=== PATIENT | female | born 1995 | race Caucasian/White ===

== ENCOUNTER 2021-07-26 09:45 | Outpatient (RCR) | payer OTHER, SELFPAY ==
[2021-07-07 11:57] VITALS: BMI 37.7
--- NOTE | 2021-07-07 12:36 | PC.NURSE ---
Case opened in treatment team
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
--- NOTE | 2021-07-11 08:36 | PC.NURSE ---
Pt called stating she wont be in tomorrow, Sunday07/12/21, as she has an appt with her PCP. Pt has displayed cold symptoms over the past several days.
--- NOTE | 2021-07-11 15:41 | PC.NURSE ---
I called and LM for pt to discuss schedule and aftercare, etc.
--- NOTE | 2021-07-12 12:35 | PC.NURSE ---
Case opened in treatment team
--- NOTE | 2021-07-12 15:39 | PC.NURSE ---
I called and spoke to pt. She said the program is going very well for her, and she is benefitting from the structure, education, and coping skills. She reports distress after a difficult discussion with her boss in which she told her boss she is in need of a leave from work and school. She also spoke about coming to accept a potential new diagnosis of bipolar disorder and new medication. Pt reproted a sense that she is coping well, and said she does not feel unsafe. Discussed aftercare plans. Pt would rather I put in a referral to [facility] than [facility]/ [facility]. I agreed to do this.
--- NOTE | 2021-07-13 11:31 | PC.NURSE ---
At patient's request, I called and placed a referral for pt to attend [facility] for individual therapy and med management. I spoke to Tejal. Tejal said she will get back to me with an intake appt today or tomorrow.
--- NOTE | 2021-07-13 11:52 | P.PNPSP_ITS ---
Subjective Subjective Date of Service: 07/13/21 Reason For Visit: Depression, Anxiety Interim History: The patient has reported mood swings, risperidone at 0.5 mg has not helped her. She still has nightmares. We discussed risks, benefits, side- effects and alternatives and she agreed to increase Risperdal up to 1 mg p.o. b.i.d. to target mood lability and add prazosin 2 mg p.o. q.h.s. for nightmares. Review of Systems Acute medical concerns: No Medical Review of Systems: unchanged Mental Status Exam Mental Status Exam Patient Appearance: Well Grooomed Patient Orientation: Person, Place, Time and Situation Level of Consciousness: Awake Patient Behavior: Appropriate Mood Description: Calm Affect Description: Labile Patient Cognition Impaired: No Ability to Follow Directions: Good Speech Pattern: Clear Memory Description: Intact Hallucinations: None Delusions: Not Present Thought Process: Goal Oriented Thought Content: positive for Flight of Ideas, positive for Racing and positive for Preoccupation Judgement: Fair Diagnostics Vital Signs (24Hr): Body Mass Index 37.7 Assessment & Plan Assessment & Plan (1) Bipolar 2 disorder: Status: Acute Code(s): F31.81 - Bipolar II disorder (2) Panic disorder [episodic paroxysmal anxiety]: Status: Acute Code(s): F41.0 - Panic disorder [episodic paroxysmal anxiety] Assessment and Plan: Young adult female with a history of mood lability, episodes of depression and racing thoughts with a past history of PTSD and panic attacks. She was recently started on risperidone but so far no changes in her mood lability. Plan 1. She agreed to increase risperidone up to 1 mg p.o. b.i.d. to target mood lability. 2. Start prazosin up to 2 mg p.o. q.h.s. to target insomnia Reason for contiued partial hosp. stay Substantial Risk for: inability to function and med/psych decompensation Certification I certify that partial hospital treatment is medically necessary due to the symptoms and problems resulting from the patient's mental illness and the failure to treat the patient at the partial hospital level of care would likely result in the patient requiring inpatient psychiatric care which could not be prevented at a less intensive level of care. Greater than 50% of the session was spent on counseling and/or coordination of care Discharge Plan Discharge Attending provider: Mehul Meek Medications: New risperidone [Risperdal] 1 mg tablet 1 mg PO BID Qty: 14 RF: 0 prazosin 2 mg capsule 2 mg PO BEDTIME Qty: 7 RF: 0
--- NOTE | 2021-07-19 13:44 | PC.NURSE ---
I called and spoke to staff at [facility], as I have not heard back about an appt for pt. The woman I spoke with said that the client had been diagnosed by Nia already and that someone would reach out to her about a therapy time. She was not able to give me an appointment.
--- NOTE | 2021-07-19 13:52 | PC.NURSE ---
I spoke with pt, and she informed me that she never spoke to Nia at [facility] (see previous note), and that she has not heard back from [facility] about an intake. I then called [facility] and spoke to staff who said she is unable to give me an appt at this time. She transferred me to Kristal, who suggested I write an email to central intake at [facility] ([email or web address]) with patients full name, date of , and discharge date. I sent this email. Kristal said someone will get back to me with appt times.
--- NOTE | 2021-07-19 14:06 | HO.PHPPROGNO ---
Subjective Subjective Date of Service: 07/19/21 Reason For Visit: Depression, Anxiety Subjective Notes: Corbett Warning and Conditional Voluntary Healthcare Proxy: No Guardianship: No Medical Problems Affecting Mental Status: No Interim History: Flory is a 25 y.o. Female who self-referred to [facility] due to worsening depression and anxiety. She does not have OP psych treatment. Symptoms include anxiety, passive SI without plan/ intent, depression, and panic attacks x one month. On intake, she endorsed sx of hypomania and mood swings. She was started on risperdal 0.5 mg BID and this was titrated up to 1 mg BID due to lack of efficacy. She was also started on prazosin 2 mg QHS for hyperarousal and PTSD sx. Past med trials: lexapro (prescribed by PCP, felt this was activating) I evaluated the patient this morning and upon interview she reports the increase in risperdal has not helped and has been sedating at both the 0.5 mg dose and 1 mg dose. Says ?I dont really know how im supposed to be feeling, i?m really tired all of the time.? Says she still feels ?bursts of energy? in the day but this ?slows down? and she feels tired again. Says ?Im super exhausted and then i?m full of energy.? Has been sleeping through the night, notices improvement in quality of sleep. No nightmares. Denies benefits for mood swings, still feels frequently emotional. Also says she is a ?big overthinker? when she is alone and her ?mind tends to race.? Flory does say she has not felt ?bad depression? since starting [facility], however she is reluctant to attribute this to medication, as group therapy has been helpful. Has SE of increased appetite but denies binge eating. Denies SI/ SIB, says she feels safe. Has been using coping skills. Medication Compliance: Yes Side effects from medications: Yes Attending Groups: Yes Review of Systems Acute medical concerns: No Medical Review of Systems: unchanged Mental Status Exam Mental Status Exam Narrative: A&O. Well groomed, appropriate dress, overweight. Good eye contact, attentive. No Tics or Tremors. No abnormal involuntary movements. Calm, cooperative, engaged. Non-pressured speech, spontaneous with regular rate and rhythm, normal volume and prosody. No prolonged speech latency or dysarthria. Mood is ?better,? affect is euthymic. Denies SI/SIB/HI upon inquiry. Denies A/VH or delusional thought content. Thoughts are coherent, organized. No known cognitive or memory impairment. Insight/ Judgment fair and adequate. Diagnostics Vital Signs (24Hr): Body Mass Index 37.7 Assessment & Plan Assessment & Plan (1) Bipolar 2 disorder: Status: Acute Code(s): F31.81 - Bipolar II disorder (2) Post-traumatic stress disorder, unspecified: Status: Acute Code(s): F43.10 - Post-traumatic stress disorder, unspecified (3) Panic disorder [episodic paroxysmal anxiety]: Status: Acute Code(s): F41.0 - Panic disorder [episodic paroxysmal anxiety] Assessment and Plan: Flory is a 25 y.o. Female who self-referred to [facility] due to worsening depression and anxiety. Symptoms include anxiety, passive SI without plan/ intent, depression, panic attacks x one month, hx of hypomania, and mood swings. She does not have OP psych treatment (referral set up at [facility]). No hx of psychotic sx. No susbtance use. Plan: 1. Continue risperdal 1 mg QHS and prazosin 2 mg QHS for mood stability, hyperarousal, and PTSD. 2. Decrease daytime risperdal to 0.25 mg QAM and Qnoon for mood stability, monitor for sedation. 3. f/u with OP referral to [facility]. 4. Monitor response to medications. Monitor for safety in the milieu. Discharge on stabilization. Patient seen. Chart reviewed. Discussed with team. Patient educated on: medication risk/benefits Certification I certify that partial hospital treatment is medically necessary due to the symptoms and problems resulting from the patient's mental illness and the failure to treat the patient at the partial hospital level of care would likely result in the patient requiring inpatient psychiatric care which could not be prevented at a less intensive level of care. Greater than 50% of the session was spent on counseling and/or coordination of care Discharge Plan Discharge Attending provider: Mehul Meek Medications: New risperidone [Risperdal] 0.5 mg tablet 0.25 mg PO BID Qty: 30 RF: 1 Continued prazosin 2 mg capsule 2 mg PO BEDTIME Qty: 30 RF: 1 Changed risperidone [Risperdal] 1 mg tablet 1 mg PO BEDTIME Qty: 30 RF: 1
--- NOTE | 2021-07-21 08:39 | PC.NURSE ---
The client left a message that she will not be in today because she did not sleep well. She states that the pharmacy did not fill her night meds.
--- NOTE | 2021-07-26 09:47 | PC.NURSE ---
Patient is scheduled to discharge from the program today. Reviewed patient medications with patient. Patient reports taking medications as prescribed. Medication education provided. No safety concerns, patient denied SI or thoughts to harm self.
--- NOTE | 2021-07-26 11:12 | HO.PHPPROGNO ---
Subjective Subjective Date of Service: 07/26/21 Reason For Visit: Depression, Anxiety Subjective Notes: Corbett Warning and Conditional Voluntary Healthcare Proxy: No Guardianship: No Medical Problems Affecting Mental Status: No Interim History: Flory is a 25 y.o. Female who self-referred to [facility] due to worsening depression and anxiety. She does not have OP psych treatment. Symptoms include anxiety, passive SI without plan/ intent, depression, and panic attacks x one month. On intake, she endorsed sx of hypomania and mood swings. She was started on risperdal 0.5 mg BID and this was titrated up to 1 mg BID due to lack of efficacy. She was also started on prazosin 2 mg QHS for hyperarousal and PTSD sx. At last visit, risperdal was decreased to 0.25 mg QAM and Qnoon due to daytime sedation and continued at 1 mg at bedtime. 07/26: I evaluated the pt this morning and upon interview she reports she was unable to cut the 0.5 mg risperdal tab and so instead has been taking it as 0.5 mg TID and ?its working really well? and that ?im not tired, i have normal energy.? Overall, says she thinks risperdal has helped with sx, ?virgie been better.? Reports she hasnt had a bad depressive episode and has not felt ?super hyperactive.? Says her anxiety is ?alright,? still ?bad in some situations.? She had a panic attack the other day at work but also says she works at [employer] so says ?its scary there? and she still thinks the risperdal is helping with anxiety. Denies nightmares. Still gets startled easily with loud noises and people yelling, but denies flashbacks. Discussed using prazosin PRN in the daytime for hyperarousal, as she notices on her apple watch her vitals increase. Feels she is ready for discharge from [facility], ?Im ready to get back into the daily routine of my life.? Wants to make sure she does aftercare because ?last time I didnt and a big stiles of reality hits you.? PCP will refill for now, and then plans to f/u with OP therapy, psychiatrist.? Medication Compliance: Yes Side effects from medications: No Review of Systems Acute medical concerns: No Medical Review of Systems: unchanged Mental Status Exam Mental Status Exam Narrative: A&O. Well groomed, appropriate dress, overweight. Good eye contact, attentive. No Tics or Tremors. No abnormal involuntary movements. Calm, cooperative, engaged. Non-pressured speech, spontaneous with regular rate and rhythm, normal volume and prosody. No prolonged speech latency or dysarthria. Mood is ?better,? affect is euthymic. Denies SI/SIB/HI upon inquiry. Denies A/VH or delusional thought content. Thoughts are coherent, organized. No known cognitive or memory impairment. Insight/ Judgment fair and adequate. Diagnostics Vital Signs (24Hr): Body Mass Index 37.7 Assessment & Plan Assessment & Plan (1) Bipolar 2 disorder: Status: Acute Code(s): F31.81 - Bipolar II disorder (2) Major depressive disorder, recurrent episode with anxious distress: Status: Acute Code(s): F33.9 - Major depressive disorder, recurrent, unspecified Assessment and Plan: Plan: 1. Continue risperdal at 0.5 mg TID and prazosin 2 mg QHS for mood stability, hyperarousal, and PTSD. 2. f/u with OP referral to [facility]. 3. Monitor response to medications. Monitor for safety in the milieu. Discharge on stabilization. Patient seen. Chart reviewed. Discussed with team. Certification I certify that partial hospital treatment is medically necessary due to the symptoms and problems resulting from the patient's mental illness and the failure to treat the patient at the partial hospital level of care would likely result in the patient requiring inpatient psychiatric care which could not be prevented at a less intensive level of care. Greater than 50% of the session was spent on counseling and/or coordination of care Discharge Plan Discharge Attending provider: Mehul Meek Additional Instructions: N Therapy Telehealth Appointment with Molly Mahajan on August 10, 2021 at 1:00 pm. They will call patient. Office # [phone]. After therapy appointment therapist will set up appointment with prescriber. Medications: New risperidone [Risperdal] 0.5 mg tablet 0.5 mg PO TID Qty: 90 RF: 0 Continued prazosin 2 mg capsule 2 mg PO BEDTIME Qty: 45 RF: 0 Stand Alone Forms: Patient Portal Discharge page Patient Education: Depression (DC), Panic Disorder (DC)
--- NOTE | 2021-07-26 14:08 | PC.NURSE ---
Called patient and left message on patient's voice mail asking her to call me back. Awaiting phone call from patient to review discharge therapy appointment at [facility] and to complete discharge paperwork with patient.
== END 2021-07-27 08:02 | disposition home or self-care (01) ==
LOC: HO.PHPA 09:45
PROVIDERS: Visit Provider Psychiatry & Neurology Psychiatry
DX: F33.9 Major depressive disorder, recurrent, unspecified (principal); F41.0 Panic disorder [episodic paroxysmal anxiety]; F43.10 Post-traumatic stress disorder, unspecified
CPT/HCPCS: 90853